=== PATIENT | male | born 1965 | race Caucasian/White ===

== ENCOUNTER → 2018-05-07 | Outpatient (CLI) | payer OTHER ==
--- NOTE | 2018-05-11 16:09 | PATH ---
[address] [address] PATHOLOGY RPT PROCEDURE Name: CARLOSYUAN A Room: [facility] Claus#: [id number] Admission: 05/07/18 Date of : 69 Discharge: Report #: [id number] Path Case #: [id number] [facility] Accession Number: [id number] . 01 Material submitted: . RIGHT GREAT TOE WOUND TISSUE . 01 Clinician provided ICD-10: S91.301A . 01 Clinical history: . Rule out plantar wart . 02 Diagnosis: Skin, "right great toe wound tissue", removal: - Hyperplastic squamous epithelium with focal ulceration, mild to moderate acute and chronic inflammation and hyperkeratosis. - No definitive evidence of viral cytopathic effect seen. . (SB:pascual; 05/08/2018) MBMckenna/05/08/2018 . 02 Electronically signed: . Charles Sainz MD, Pathologist NPI- [id number] . 01 Gross description: . The specimen is received in formalin, labeled "Yuan Hernandez, right great toe wound tissue", is a 0.6 x 0.4 x 0.2 cm ingram soft tissue, inked black, bisected and entirely submitted in A1. (SWS; 05/07/2018) SHS/SHS . 02 Pathologist provided ICD-10: L98.499, L08.9, L85.8 . 02 CPT . [id number] Specimen Comment: A courtesy copy of this report has been sent to Specimen Comment: [phone], . Specimen Comment: Report sent to and Performed at: [address] [id number] MD Kodak Bello MD Phone: [phone] Performed at: [address] [id number] [address] [address] PATHOLOGY RPT PROCEDURE Name: YUAN HERNANDEZ [facility] [id number] Admission: 05/07/18 Date of : 69 Discharge: Report #: [id number] Path Case #: [id number] MD Mat Coe MD Phone: [phone]
== END ==
LOC: M.WC 07:41
DX: I87.313 Chronic venous hypertension (idiopathic) with ulcer of bilateral lower extremity (principal); L89.892 Pressure ulcer of other site, stage 2; L97.522 Non-pressure chronic ulcer of other part of left foot with fat layer exposed; L97.512 Non-pressure chronic ulcer of other part of right foot with fat layer exposed; L84 Corns and callosities; B20 Human immunodeficiency virus [HIV] disease; E66.9 Obesity, unspecified; E78.2 Mixed hyperlipidemia; I25.10 Atherosclerotic heart disease of native coronary artery without angina pectoris; G62.9 Polyneuropathy, unspecified; G40.89 Other seizures; N40.1 Benign prostatic hyperplasia with lower urinary tract symptoms; F41.9 Anxiety disorder, unspecified; F32.9 Major depressive disorder, single episode, unspecified; F17.200 Nicotine dependence, unspecified, uncomplicated; Z79.82 Long term (current) use of aspirin; Z68.33 Body mass index [BMI] 33.0-33.9, adult

== ENCOUNTER → 2018-05-14 | Outpatient (CLI) | payer OTHER | LOC: M.WC 04:56 | DX: I87.313 Chronic venous hypertension (idiopathic) with ulcer of bilateral lower extremity (principal); L97.511 Non-pressure chronic ulcer of other part of right foot limited to breakdown of skin; L97.528 Non-pressure chronic ulcer of other part of left foot with other specified severity; L89.892 Pressure ulcer of other site, stage 2; L84 Corns and callosities; E78.2 Mixed hyperlipidemia; E66.9 Obesity, unspecified; G62.9 Polyneuropathy, unspecified; I25.10 Atherosclerotic heart disease of native coronary artery without angina pectoris; K21.9 Gastro-esophageal reflux disease without esophagitis; F17.290 Nicotine dependence, other tobacco product, uncomplicated; F41.9 Anxiety disorder, unspecified; F32.9 Major depressive disorder, single episode, unspecified; Z21 Asymptomatic human immunodeficiency virus [HIV] infection status; Z68.33 Body mass index [BMI] 33.0-33.9, adult ==

== ENCOUNTER → 2018-05-21 | Outpatient (CLI) | payer OTHER | LOC: M.WC 05:10 | DX: I87.311 Chronic venous hypertension (idiopathic) with ulcer of right lower extremity (principal); L97.512 Non-pressure chronic ulcer of other part of right foot with fat layer exposed; L89.892 Pressure ulcer of other site, stage 2; L84 Corns and callosities; B20 Human immunodeficiency virus [HIV] disease; E78.2 Mixed hyperlipidemia; G62.9 Polyneuropathy, unspecified; I25.10 Atherosclerotic heart disease of native coronary artery without angina pectoris; K21.9 Gastro-esophageal reflux disease without esophagitis; N40.1 Benign prostatic hyperplasia with lower urinary tract symptoms; F17.290 Nicotine dependence, other tobacco product, uncomplicated; F41.9 Anxiety disorder, unspecified; F32.9 Major depressive disorder, single episode, unspecified ==

== ENCOUNTER → 2018-05-28 | Outpatient (CLI) | payer OTHER | LOC: M.WC 05:55 | DX: I87.311 Chronic venous hypertension (idiopathic) with ulcer of right lower extremity (principal); L89.892 Pressure ulcer of other site, stage 2; L97.511 Non-pressure chronic ulcer of other part of right foot limited to breakdown of skin; I87.2 Venous insufficiency (chronic) (peripheral); I25.10 Atherosclerotic heart disease of native coronary artery without angina pectoris; B20 Human immunodeficiency virus [HIV] disease; E78.2 Mixed hyperlipidemia; G62.9 Polyneuropathy, unspecified; N40.1 Benign prostatic hyperplasia with lower urinary tract symptoms; K21.9 Gastro-esophageal reflux disease without esophagitis; F17.290 Nicotine dependence, other tobacco product, uncomplicated; F41.9 Anxiety disorder, unspecified; F32.9 Major depressive disorder, single episode, unspecified ==

== ENCOUNTER → 2018-06-12 | Outpatient (CLI) | payer OTHER | LOC: M.WC 06-11 08:00 | DX: I87.311 Chronic venous hypertension (idiopathic) with ulcer of right lower extremity (principal); L97.512 Non-pressure chronic ulcer of other part of right foot with fat layer exposed; L89.892 Pressure ulcer of other site, stage 2; L84 Corns and callosities; B20 Human immunodeficiency virus [HIV] disease; E78.2 Mixed hyperlipidemia; E66.9 Obesity, unspecified; G62.9 Polyneuropathy, unspecified; I25.10 Atherosclerotic heart disease of native coronary artery without angina pectoris; K21.9 Gastro-esophageal reflux disease without esophagitis; N40.1 Benign prostatic hyperplasia with lower urinary tract symptoms; F41.9 Anxiety disorder, unspecified; F32.9 Major depressive disorder, single episode, unspecified; F17.290 Nicotine dependence, other tobacco product, uncomplicated; F17.200 Nicotine dependence, unspecified, uncomplicated; Z68.33 Body mass index [BMI] 33.0-33.9, adult ==

== ENCOUNTER → 2018-06-26 | Outpatient (CLI) | payer OTHER | LOC: M.WC 04:48 | DX: I87.311 Chronic venous hypertension (idiopathic) with ulcer of right lower extremity (principal); L89.892 Pressure ulcer of other site, stage 2; L97.512 Non-pressure chronic ulcer of other part of right foot with fat layer exposed; L84 Corns and callosities; B20 Human immunodeficiency virus [HIV] disease; E78.2 Mixed hyperlipidemia; E66.9 Obesity, unspecified; G62.9 Polyneuropathy, unspecified; I25.10 Atherosclerotic heart disease of native coronary artery without angina pectoris; K21.9 Gastro-esophageal reflux disease without esophagitis; N40.1 Benign prostatic hyperplasia with lower urinary tract symptoms; F17.290 Nicotine dependence, other tobacco product, uncomplicated; F41.9 Anxiety disorder, unspecified; F32.9 Major depressive disorder, single episode, unspecified; Z68.33 Body mass index [BMI] 33.0-33.9, adult ==

== ENCOUNTER → 2018-07-10 | Outpatient (CLI) | payer OTHER | LOC: M.WC 08:00 | DX: I87.311 Chronic venous hypertension (idiopathic) with ulcer of right lower extremity (principal); L89.892 Pressure ulcer of other site, stage 2; L97.518 Non-pressure chronic ulcer of other part of right foot with other specified severity; L84 Corns and callosities; B20 Human immunodeficiency virus [HIV] disease; E66.9 Obesity, unspecified; E78.2 Mixed hyperlipidemia; G62.9 Polyneuropathy, unspecified; I25.10 Atherosclerotic heart disease of native coronary artery without angina pectoris; K21.9 Gastro-esophageal reflux disease without esophagitis; N40.1 Benign prostatic hyperplasia with lower urinary tract symptoms; F17.290 Nicotine dependence, other tobacco product, uncomplicated; F41.9 Anxiety disorder, unspecified; F32.9 Major depressive disorder, single episode, unspecified; Z68.33 Body mass index [BMI] 33.0-33.9, adult ==

== ENCOUNTER → 2019-04-23 | Outpatient (CLI) | payer OTHER | LOC: M.WC 08:39 | DX: L89.893 Pressure ulcer of other site, stage 3 (principal); L84 Corns and callosities; E66.9 Obesity, unspecified; G62.9 Polyneuropathy, unspecified; I25.10 Atherosclerotic heart disease of native coronary artery without angina pectoris; K21.9 Gastro-esophageal reflux disease without esophagitis; F41.9 Anxiety disorder, unspecified; F17.200 Nicotine dependence, unspecified, uncomplicated; F32.9 Major depressive disorder, single episode, unspecified; Z95.5 Presence of coronary angioplasty implant and graft; Z68.33 Body mass index [BMI] 33.0-33.9, adult; Z21 Asymptomatic human immunodeficiency virus [HIV] infection status ==

== ENCOUNTER → 2019-04-30 | Outpatient (CLI) | payer OTHER | LOC: M.WC 05:32 | DX: L89.893 Pressure ulcer of other site, stage 3 (principal); I25.10 Atherosclerotic heart disease of native coronary artery without angina pectoris; G62.9 Polyneuropathy, unspecified; K21.9 Gastro-esophageal reflux disease without esophagitis; F41.9 Anxiety disorder, unspecified; F32.9 Major depressive disorder, single episode, unspecified; F17.200 Nicotine dependence, unspecified, uncomplicated; Z21 Asymptomatic human immunodeficiency virus [HIV] infection status ==

== ENCOUNTER → 2020-03-03 | Outpatient (CLI) | payer OTHER ==
[2020-03-03 10:17] LABS: ABSOLUTE BASOPHILS 0.1 thou/uL (0.0-0.2); ABSOLUTE EOSINOPHILS 0.4 thou/uL (0.0-0.7); ABSOLUTE LYMPHOCYTES 2.1 thou/uL (0.8-5.3); ABSOLUTE MONOCYTES 0.5 thou/uL (0.0-1.2); ABSOLUTE NEUTROPHILS 7.4 thou/uL (1.6-8.1); BASOPHILS 1.1 %; EOSINOPHILS 4.1 %; HEMATOCRIT 43.5 % (42.0-52.0); HEMOGLOBIN 15.4 gm/dL (14.0-18.0); LYMPHOCYTES 19.8 %; MCH 35.5 pg (26.0-34.0); MCHC 35.5 g/dL (28.0-37.0); MCV 100.1 fL (80.0-100.0); MONOCYTES 4.7 %; MPV 8.5 fl. (7.2-11.1); NUCLEATED RBCS 0 /100WBC; PLATELET COUNT* 281 thou/uL (150-400); POLYS 70.3 %; RBC 4.34 mil/uL (4.50-6.00); RDW-CV 12.9 % (10.5-14.5); WBC 10.6 thou/uL (4.0-11.0)
[2020-03-03 10:26] LABS: CALCIUM 8.7 mg/dL (8.5-10.1); CREATININE 1.3 mg/dL (0.6-1.3); POTASSIUM 4.2 mmol/L (3.5-5.1)
[2020-03-03 11:19] LABS: ESR (SEDRATE) 5 mm/hr (0-20)
[2020-03-04 02:06] LABS: GLYCOHEMOGLOBIN (HGB A1C) 6.1 % (4.8-5.6)
== END ==
LOC: M.WC 08:00
PROVIDERS: ATTEND Family Medicine
DX: L89.893 Pressure ulcer of other site, stage 3 (principal); G62.9 Polyneuropathy, unspecified; L84 Corns and callosities; I25.10 Atherosclerotic heart disease of native coronary artery without angina pectoris; M19.90 Unspecified osteoarthritis, unspecified site; F41.9 Anxiety disorder, unspecified; F32.9 Major depressive disorder, single episode, unspecified; F17.290 Nicotine dependence, other tobacco product, uncomplicated; Z79.82 Long term (current) use of aspirin; Z79.899 Other long term (current) drug therapy

== ENCOUNTER → 2020-03-09 | Outpatient (CLI) | payer OTHER | LOC: M.WC 03:58 | PROVIDERS: ATTEND Family Medicine | DX: L97.522 Non-pressure chronic ulcer of other part of left foot with fat layer exposed (principal); L89.893 Pressure ulcer of other site, stage 3; G62.9 Polyneuropathy, unspecified; E66.9 Obesity, unspecified; I25.10 Atherosclerotic heart disease of native coronary artery without angina pectoris; M19.90 Unspecified osteoarthritis, unspecified site; K21.9 Gastro-esophageal reflux disease without esophagitis; F17.200 Nicotine dependence, unspecified, uncomplicated; F41.9 Anxiety disorder, unspecified; F32.9 Major depressive disorder, single episode, unspecified; Z21 Asymptomatic human immunodeficiency virus [HIV] infection status; Z68.31 Body mass index [BMI] 31.0-31.9, adult ==

== ENCOUNTER → 2020-03-16 | Outpatient (CLI) | payer OTHER | LOC: M.WC 04:07 | PROVIDERS: ATTEND Family Medicine | DX: L89.893 Pressure ulcer of other site, stage 3 (principal); L84 Corns and callosities; G62.9 Polyneuropathy, unspecified; E66.9 Obesity, unspecified; M19.90 Unspecified osteoarthritis, unspecified site; I25.10 Atherosclerotic heart disease of native coronary artery without angina pectoris; K21.9 Gastro-esophageal reflux disease without esophagitis; F41.9 Anxiety disorder, unspecified; F32.9 Major depressive disorder, single episode, unspecified; F17.200 Nicotine dependence, unspecified, uncomplicated; Z21 Asymptomatic human immunodeficiency virus [HIV] infection status; Z68.31 Body mass index [BMI] 31.0-31.9, adult ==

== ENCOUNTER → 2020-03-23 | Outpatient (CLI) | payer OTHER | LOC: M.WC 01:26 | PROVIDERS: ATTEND Family Medicine | DX: L89.893 Pressure ulcer of other site, stage 3 (principal); L84 Corns and callosities; G62.9 Polyneuropathy, unspecified; I25.10 Atherosclerotic heart disease of native coronary artery without angina pectoris; K21.9 Gastro-esophageal reflux disease without esophagitis; M19.90 Unspecified osteoarthritis, unspecified site; F17.200 Nicotine dependence, unspecified, uncomplicated; F41.9 Anxiety disorder, unspecified; F32.9 Major depressive disorder, single episode, unspecified; Z21 Asymptomatic human immunodeficiency virus [HIV] infection status ==

== ENCOUNTER → 2020-03-30 | Outpatient (CLI) | payer OTHER | LOC: M.WC 04:03 | PROVIDERS: ATTEND Family Medicine | DX: L89.893 Pressure ulcer of other site, stage 3 (principal); I25.10 Atherosclerotic heart disease of native coronary artery without angina pectoris; G62.9 Polyneuropathy, unspecified; E66.9 Obesity, unspecified; K21.9 Gastro-esophageal reflux disease without esophagitis; M19.90 Unspecified osteoarthritis, unspecified site; F41.9 Anxiety disorder, unspecified; F32.9 Major depressive disorder, single episode, unspecified; F17.200 Nicotine dependence, unspecified, uncomplicated; Z21 Asymptomatic human immunodeficiency virus [HIV] infection status; Z68.31 Body mass index [BMI] 31.0-31.9, adult ==

== ENCOUNTER → 2020-06-28 | Outpatient (CLI) | payer OTHER | LOC: M.LAB 05:15 | PROVIDERS: ATTEND Anesthesiology | DX: Z51.81 Encounter for therapeutic drug level monitoring (principal) ==

== ENCOUNTER → 2020-12-18 | Outpatient (CLI) | payer OTHER | LOC: M.WC 12:55 | PROVIDERS: ATTEND Podiatrist Foot & Ankle Surgery | DX: L89.892 Pressure ulcer of other site, stage 2 (principal); L97.512 Non-pressure chronic ulcer of other part of right foot with fat layer exposed; L97.522 Non-pressure chronic ulcer of other part of left foot with fat layer exposed; L03.90 Cellulitis, unspecified; L84 Corns and callosities; G62.9 Polyneuropathy, unspecified; I25.10 Atherosclerotic heart disease of native coronary artery without angina pectoris; M19.90 Unspecified osteoarthritis, unspecified site; F17.200 Nicotine dependence, unspecified, uncomplicated; F41.9 Anxiety disorder, unspecified; F32.9 Major depressive disorder, single episode, unspecified; K21.9 Gastro-esophageal reflux disease without esophagitis; Z79.82 Long term (current) use of aspirin; Z21 Asymptomatic human immunodeficiency virus [HIV] infection status; Z95.5 Presence of coronary angioplasty implant and graft ==

== ENCOUNTER → 2020-12-25 | Outpatient (CLI) | payer OTHER | LOC: M.WC 12:34 | PROVIDERS: ATTEND Podiatrist Foot & Ankle Surgery | DX: L89.892 Pressure ulcer of other site, stage 2 (principal); L97.512 Non-pressure chronic ulcer of other part of right foot with fat layer exposed; L97.522 Non-pressure chronic ulcer of other part of left foot with fat layer exposed; L03.90 Cellulitis, unspecified; L84 Corns and callosities; G62.9 Polyneuropathy, unspecified; I25.10 Atherosclerotic heart disease of native coronary artery without angina pectoris; K21.9 Gastro-esophageal reflux disease without esophagitis; M19.90 Unspecified osteoarthritis, unspecified site; F17.200 Nicotine dependence, unspecified, uncomplicated; F41.9 Anxiety disorder, unspecified; F32.9 Major depressive disorder, single episode, unspecified; Z79.82 Long term (current) use of aspirin; Z21 Asymptomatic human immunodeficiency virus [HIV] infection status; Z95.5 Presence of coronary angioplasty implant and graft ==

== ENCOUNTER → 2021-01-01 | Outpatient (CLI) | payer OTHER | LOC: M.WC 12:17 | PROVIDERS: ATTEND Podiatrist Foot & Ankle Surgery | DX: L89.892 Pressure ulcer of other site, stage 2 (principal); L97.512 Non-pressure chronic ulcer of other part of right foot with fat layer exposed; L97.522 Non-pressure chronic ulcer of other part of left foot with fat layer exposed; L84 Corns and callosities; L03.90 Cellulitis, unspecified; G62.9 Polyneuropathy, unspecified; I25.10 Atherosclerotic heart disease of native coronary artery without angina pectoris; K21.9 Gastro-esophageal reflux disease without esophagitis; M19.90 Unspecified osteoarthritis, unspecified site; F17.200 Nicotine dependence, unspecified, uncomplicated; F41.9 Anxiety disorder, unspecified; F32.9 Major depressive disorder, single episode, unspecified; Z21 Asymptomatic human immunodeficiency virus [HIV] infection status; Z95.5 Presence of coronary angioplasty implant and graft ==

== ENCOUNTER → 2021-01-15 | Outpatient (CLI) | payer OTHER | LOC: M.WC 12:22 | PROVIDERS: ATTEND Podiatrist Foot & Ankle Surgery | DX: L89.892 Pressure ulcer of other site, stage 2 (principal); L97.522 Non-pressure chronic ulcer of other part of left foot with fat layer exposed; L97.512 Non-pressure chronic ulcer of other part of right foot with fat layer exposed; L84 Corns and callosities; L03.90 Cellulitis, unspecified; G62.9 Polyneuropathy, unspecified; I25.10 Atherosclerotic heart disease of native coronary artery without angina pectoris; K21.9 Gastro-esophageal reflux disease without esophagitis; M19.90 Unspecified osteoarthritis, unspecified site; F17.200 Nicotine dependence, unspecified, uncomplicated; F41.9 Anxiety disorder, unspecified; F32.9 Major depressive disorder, single episode, unspecified; Z21 Asymptomatic human immunodeficiency virus [HIV] infection status; Z95.5 Presence of coronary angioplasty implant and graft ==

== ENCOUNTER → 2021-06-20 | Outpatient (CLI) | payer OTHER | LOC: M.LAB 15:47 | PROVIDERS: ATTEND Podiatrist Foot & Ankle Surgery | DX: Z01.812 Encounter for preprocedural laboratory examination (principal); Z20.822 Contact with and (suspected) exposure to COVID-19 ==

== ENCOUNTER → 2021-06-22 | Outpatient (CLI) | payer OTHER | LOC: M.LAB 06:13 | PROVIDERS: ATTEND Anesthesiology | DX: E87.6 Hypokalemia (principal) ==

== ENCOUNTER → 2021-07-03 | Outpatient (CLI) | payer OTHER ==
[~2021-07-03] MED LIST: ALPRAZOLAM XR3 MG PO; ALPRAZOLAM1 MG PO; AMITRIPTYLINE H75 M2 PO; ASA81BEC PO; ATRIPLA TABLET1 EACH PO; BACLOFEN 10MG T10 MG PO; BENAZEPRIL 10 M10 MG PO; DORYX MPC120 MG PO; FLEXERIL PO; FLUOXETINE HCL60 MG PO; FUROSEMIDE 40 M40 MG PO; HYDROCODON-ACE1 EAC5 PO; IMDUR 30 MG TAB30 M1 PO; ISOSORBIDE MONO20 MG PO; KEPPRA750 MG PO; LIPITOR 20 MG T20 M1 PO; LIPITOR40 MG PO; LOPRESSOR50 MG PO; LOTENSIN20 MG PO; LYRICA150 MG PO; MATZIM LA180 MG PO; METOPROLOL SUCC50 MG PO; PREGABALIN50 MG PO; TAMSULOSIN HCL0.4 MG PO; [UNRECOGNIZED DRUG - OTHER] PO
== END ==
LOC: M.RAD 14:05
PROVIDERS: ATTEND Podiatrist Foot & Ankle Surgery
DX: S92.352A Displaced fracture of fifth metatarsal bone, left foot, initial encounter for closed fracture (principal); S92.351A Displaced fracture of fifth metatarsal bone, right foot, initial encounter for closed fracture; M25.572 Pain in left ankle and joints of left foot; M25.571 Pain in right ankle and joints of right foot; M79.672 Pain in left foot; M79.671 Pain in right foot; X58.XXXA Exposure to other specified factors, initial encounter; Y93.89 Activity, other specified; Y92.89 Other specified places as the place of occurrence of the external cause; Y99.8 Other external cause status

== ENCOUNTER 2021-07-04 11:51 | Inpatient (IN) | payer OTHER, MEDICARE ==
[2021-07-04] VITALS (10 sets, daily range): BP systolic 88–110; BP diastolic 36–54
[~2021-07-04] VITALS: Ht 180.3 cm; Wt 99.8 kg
[2021-07-04] MEDS ORDERED: DORYX MPC120 MG PO ×2 (12:12→14:46)
[2021-07-04] MEDS ORDERED: ATRIPLA TABLET1 EACH PO (12:13)
[2021-07-04] MEDS ORDERED: BACLOFEN 10MG T10 MG PO (12:14)
[2021-07-04] MEDS ORDERED: HYDROCODON-ACE1 EAC5 PO (12:14)
[2021-07-04] MEDS ORDERED: KEPPRA750 MG PO (12:14)
[2021-07-04] MEDS ORDERED: ALPRAZOLAM XR3 MG PO (12:14)
[2021-07-04] MEDS ORDERED: LIPITOR 20 MG T20 M1 PO (12:14)
[2021-07-04] MEDS ORDERED: ISOSORBIDE MONO20 MG PO (12:15)
[2021-07-04] MEDS ORDERED: LOPRESSOR50 MG PO (12:15)
[2021-07-04] MEDS ORDERED: ASA81BEC PO (12:15)
[2021-07-04] MEDS ORDERED: FLEXERIL PO ×2 (12:15→14:49)
[2021-07-04] MEDS ORDERED: AMITRIPTYLINE H75 M2 PO ×2 (12:16→14:51)
[2021-07-04] MEDS ORDERED: PREGABALIN50 MG PO (12:16)
[2021-07-04] MEDS ORDERED: MATZIM LA180 MG PO ×2 (12:16→14:47)
[2021-07-04] MEDS ORDERED: BENAZEPRIL 10 M10 MG PO (12:18)
[2021-07-04 12:21] LABS: HEMOGLOBIN 11.8 gm/dL (14.0-18.0)
[2021-07-04 12:22] LABS: HEMATOCRIT 35.1 % (42.0-52.0); MCH 33.8 pg (26.0-34.0); MCHC 33.7 g/dL (28.0-37.0); MCV 100.2 fL (80.0-100.0); MPV 9.2 fl. (7.2-11.1); NUCLEATED RBCS 0 /100WBC; PLATELET COUNT* 338 thou/uL (150-400); RDW-CV 13.9 % (10.5-14.5); WBC 10.6 thou/uL (4.0-11.0)
[2021-07-04 12:24] LABS: CALCIUM 8.3 mg/dL (8.5-10.1); CREATININE 1.2 mg/dL (0.6-1.3)
--- NOTE | 2021-07-04 12:47 | EKG ---
[place] [address] ELECTROCARDIOGRAM REPORT Name: TRE GONZALEZ Room: [facility]#: [id number] Admission: 07/04/21 Attend Phys: Discharge: Date of : 69 Date of Service: 07/04/21 1243 Report #: [id number] THIS REPORT FOR: //name// [facility] ED Test Date: 2021-07-04 Test Time: 12:43:15 Pat Name: TRE GONZALEZ Department: Room: Gender: Stonemason Helper: [facility] : 1965 Requested By: Erasto Palomino Order Number: [id number] MD: Mario Castellanos Measurements Intervals Dalton Rate: 75 P: 63 MT: 174 QRS: 53 QRSD: 124 T: 27 QT: 420 QTc: 470 Interpretive Statements Sinus rhythm Nonspecific intraventricular conduction delay No previous ECG available for comparison Electronically Signed On 07-04-2021 12:47:37 [employer] TECHNICIAN by Mario Castellanos [email or web address] <ELECTRONICALLY SIGNED> By: Mario Castellanos MD, [facility] 07/04/21 1247 1243 1243 Mario Castellanos MD, FACC /EPI
[2021-07-04 12:52] LABS: ALBUMIN 2.1 g/dL (3.4-5.0); DIRECT BILIRUBIN 0.2 mg/dL (<0.1-0.3); TOTAL BILIRUBIN 0.3 mg/dL (<0.1-1.0); TOTAL PROTEIN 6.6 g/dL (6.4-8.2)
[2021-07-04 12:59] LABS: ABSOLUTE EOSINOPHILS 0.6 thou/uL (0.0-0.7); ABSOLUTE LYMPHOCYTES 1.9 thou/uL (0.8-5.3); ABSOLUTE MONOCYTES 0.3 thou/uL (0.0-1.2); ABSOLUTE NEUTROPHILS 7.7 thou/uL (1.6-8.1)
[2021-07-04 13:01] LABS: PLATELET ESTIMATE ADEQUATE
[2021-07-04 13:02] LABS: LARGE PLATELETS OCCASIONAL
[2021-07-04] MEDS ORDERED: [UNRECOGNIZED DRUG - OTHER] PO (14:25)
[2021-07-04] MEDS ORDERED: LYRICA150 MG PO (14:35)
[2021-07-04] MEDS ORDERED: TAMSULOSIN HCL0.4 MG PO (14:36)
[2021-07-04] MEDS ORDERED: LIPITOR40 MG PO (14:37)
[2021-07-04] MEDS ORDERED: FUROSEMIDE 40 M40 MG PO (14:47)
[2021-07-04] MEDS ORDERED: LOTENSIN20 MG PO (14:48)
[2021-07-04] MEDS ORDERED: FLUOXETINE HCL60 MG PO (14:48)
[2021-07-04] MEDS ORDERED: IMDUR 30 MG TAB30 M1 PO (14:50)
[2021-07-04] MEDS ORDERED: METOPROLOL SUCC50 MG PO (14:51)
[2021-07-04] MEDS ORDERED: ALPRAZOLAM1 MG PO (14:58)
--- NOTE | 2021-07-04 14:59 | NUR ---
PRIMARY CARE DR ALMEIDA CARDIOLOGY DR. TORRES NEUROLOGY DR. GISELLE VALENTINE (HIV) DR. MILADIS BENTON
--- NOTE | 2021-07-04 15:00 | NUR ---
DR VAZQUEZ ROUNDED, UPDATED ON BP; ORDERS RECEIVED
[2021-07-05 00:31] VITALS: BP 100/50
[2021-07-05 02:06] LABS: GLYCOHEMOGLOBIN (HGB A1C) 6.7 % (4.8-5.6)
[2021-07-05 05:12] LABS: HEMATOCRIT 30.4 % (42.0-52.0); HEMOGLOBIN 10.1 gm/dL (14.0-18.0); MCH 33.7 pg (26.0-34.0); MCHC 33.2 g/dL (28.0-37.0); MCV 101.3 fL (80.0-100.0); RBC 3.01 mil/uL (4.50-6.00); RDW-CV 14.2 % (10.5-14.5); WBC 7.7 thou/uL (4.0-11.0)
[2021-07-05 05:31] VITALS: BP 100/50
[2021-07-05 05:35] LABS: ALBUMIN 1.6 g/dL (3.4-5.0); CALCIUM 7.8 mg/dL (8.5-10.1); MAGNESIUM 2.2 mg/dL (1.8-2.4); POTASSIUM 4.4 mmol/L (3.5-5.1); TOTAL BILIRUBIN 0.3 mg/dL (<0.1-1.0); TOTAL PROTEIN 6.1 g/dL (6.4-8.2)
--- NOTE | 2021-07-05 08:04 | NUR ---
ASSUMED CARE OF PT AFTER REPORT AT 1930. PT A&OX4. VSS. PHYSICAL ASSESSMENT COMPLETED AND CHARTED. PT ON RA. PT TRACING SR ON TELE. PT COMPLAINED OF TOE PAIN-MED GIVEN PER MAR. FALL PRECAUTIONS IN PLACE. CALL LIGHT WITHIN REACH.
[2021-07-05 12:00] VITALS: BP 107/54
[2021-07-05 16:00] VITALS: BP 98/58
[2021-07-05 20:00] VITALS: BP 130/69
[2021-07-06] VITALS: BP 108/65
[2021-07-06 04:00] VITALS: BP 117/70
--- NOTE | 2021-07-06 06:38 | NUR ---
ASSUMED CARE OF PT AFTER REPORT AT 1930. PT A&OX4. VSS. PHYSICAL ASSESSMENT COMPLETED AND CHARTED. PT ON RA. PT TRACING SR ON TELE. PT COMPLAINED OF BILATERAL TOE PAIN-MED GIVEN PER OCT. PT ABLE TO SLEEP WELL ON BED. FALL PRECAUTIONS IN PLACE. CALL LIGHT WITHIN REACH.
--- NOTE | 2021-07-06 07:20 | NUR ---
CHANGE OF SHIFT BEDSIDE REPORT GIVEN PATIENT SEEN AT BEDSIDE, IN BED ASLEEP [facility] PATIENT CARE
[2021-07-06 13:57] VITALS: BP 105/67
[2021-07-06 15:00] VITALS: BP 131/75
[2021-07-06 16:00] VITALS: BP 131/75
--- NOTE | 2021-07-06 18:01 | NUR ---
PATIENT STATUS CHANGED TO MS AND TELE MONITOR REMOVED PATIENT MOVED TO 307 AND REPORT GIVEN TO JUAN RAMON CUI PATIENT MOVED BY WITH BELONGINGS
--- NOTE | 2021-07-06 18:16 | NUR ---
PATIENT TRANSFERED TO [facility] FROM [facility] AT THIS TIME. ORIENTED TO ROOM AND FLOOR. WOUNDS TO RIGHT AND LEFT BIG TOE, UNABLE TO ASSESS DUE TO DRESSINGS. PICTURES IN CHART. NEW DIAGNOSIS OF DIABETES. PATIENT RESTING IN BED.
[2021-07-06 19:30] VITALS: BP 123/70
--- NOTE | 2021-07-06 19:30 | NUR ---
AWAKENED FOR HS REASSESSMENT. CALL LIGHT WILLI DONALDSON. HAS KERLIX AROUND BOTH GREAT TOES AND HAS YELLOW SOCKS OVER THE KERLIX.
--- NOTE | 2021-07-07 04:55 | NUR ---
RESTED QUIETLY. REMAINS ON IV ANTIBIOTICS. PAIN CONTROLLED WITH SCHEDULED TRAMADOL AND FLEXERIL. HOURLY ROUNDING IN PROGRESS.
[2021-07-07 08:00] VITALS: BP 144/76
[2021-07-07 08:05] LABS: HEMATOCRIT 30.7 % (42.0-52.0); HEMOGLOBIN 10.1 gm/dL (14.0-18.0); MCH 32.9 pg (26.0-34.0); MCV 99.8 fL (80.0-100.0); RBC 3.08 mil/uL (4.50-6.00); WBC 9.1 thou/uL (4.0-11.0)
[2021-07-07 08:23] LABS: ALBUMIN 1.9 g/dL (3.4-5.0); CALCIUM 8.3 mg/dL (8.5-10.1); CREATININE 0.8 mg/dL (0.6-1.3); MAGNESIUM 2.2 mg/dL (1.8-2.4); POTASSIUM 4.2 mmol/L (3.5-5.1); TOTAL BILIRUBIN 0.3 mg/dL (<0.1-1.0); TOTAL PROTEIN 6.9 g/dL (6.4-8.2)
[2021-07-07] MEDS ORDERED: HYDROCODON-ACE1 EAC5 PO (10:19)
[2021-07-07] MEDS ORDERED: LIDOPATCH1 EACH TOP (10:19)
[2021-07-07] MEDS ORDERED: CIPRO500 M1 PO (10:23)
[2021-07-07] MEDS ORDERED: VIBRAMYCIN 100100 MG PO (10:23)
[2021-07-07 15:33] VITALS: BP 144/76
--- NOTE | 2021-07-07 16:36 | NUR ---
PT DISCHARGED HOME WITH ALL BELONGINGS WITH a good understanding OF DISCHARGE INSTRUCTIONS. PT WILL FOLLOW UP WITH FOOT DR. AN OUT PATIENT. PT IS WORKING ON KEEPING HIS BLOOD SUGARS BELOW 150 AND TO EAT LESS CARBOHYDRATES SO HE HEALS BETTER. SALINE LOCK REMOVED HUB INTACT. PT DISCHARGED HOME.
== END 2021-07-07 16:35 | disposition home or self-care (01) | DRG 862 ==
LOC: M.ERS 11:51 → M.TBA-ER 12:47 → M.3W 12:47 → M.2W 18:28 → M.3W 07-06 18:13
PROVIDERS: Emergency Medicine Emergency Medical Services; ADMIT Internal Medicine; ATTEND Internal Medicine
DX: T81.40XA Infection following a procedure, unspecified, initial encounter (principal); E43 Unspecified severe protein-calorie malnutrition; L03.116 Cellulitis of left lower limb; R65.10 Systemic inflammatory response syndrome (SIRS) of non-infectious origin without acute organ dysfunction; L03.115 Cellulitis of right lower limb; E11.42 Type 2 diabetes mellitus with diabetic polyneuropathy; Z79.4 Long term (current) use of insulin; Z88.8 Allergy status to other drugs, medicaments and biological substances; Z68.30 Body mass index [BMI] 30.0-30.9, adult; I95.9 Hypotension, unspecified; Z20.822 Contact with and (suspected) exposure to COVID-19; Z21 Asymptomatic human immunodeficiency virus [HIV] infection status; I25.10 Atherosclerotic heart disease of native coronary artery without angina pectoris

== ENCOUNTER → 2021-07-11 | Outpatient (CLI) | payer OTHER, MEDICARE ==
[~2021-07-11] MED LIST changes: +CIPRO500 M1 PO; +LIDOPATCH1 EACH TOP; +VIBRAMYCIN 100100 MG PO
== END ==
LOC: M.LAB 14:31
PROVIDERS: ATTEND Podiatrist Foot & Ankle Surgery
DX: Z01.812 Encounter for preprocedural laboratory examination (principal); Z20.822 Contact with and (suspected) exposure to COVID-19

== ENCOUNTER → 2021-07-27 | Outpatient (CLI) | payer OTHER, MEDICARE | LOC: M.ULTRA 14:48 | PROVIDERS: ATTEND Podiatrist Foot & Ankle Surgery | DX: L03.116 Cellulitis of left lower limb (principal); M79.605 Pain in left leg ==

== ENCOUNTER → 2021-09-14 | Outpatient (CLI) | payer OTHER, MEDICARE | LOC: M.LAB 11:35 | PROVIDERS: ATTEND Podiatrist Foot & Ankle Surgery | DX: Z01.812 Encounter for preprocedural laboratory examination (principal); Z20.822 Contact with and (suspected) exposure to COVID-19; E87.6 Hypokalemia ==